=== PATIENT | female | born 1995 | race Two or more races ===

== ENCOUNTER → 2022-06-09 | Outpatient (REF) ==
[2022-06-09 13:56] LABS: RSV AMPLIFICATION NEGATIVE (NEGATIVE)
== END ==
LOC: M LABSMTC 10:45
PROVIDERS: ATTEND Family Medicine
DX: Z20.822 Contact with and (suspected) exposure to COVID-19 (principal)

== ENCOUNTER 2022-07-16 03:14 | Emergency (ER) | payer OTHER, SELFPAY ==
[~2022-07-16] VITALS: Ht 162.6 cm; Wt 69.5 kg
[2022-07-16 03:15] VITALS: BP 149/80
== END 2022-07-16 04:04 | disposition left against medical advice (07) ==
LOC: M ED 03:14
DX: Z53.21 Procedure and treatment not carried out due to patient leaving prior to being seen by health care provider (principal)

== ENCOUNTER 2022-07-22 21:28 | Emergency (ER) | payer OTHER ==
[~2022-07-22] VITALS: Ht 162.6 cm; Wt 78.1 kg
[2022-07-22 22:27] LABS: BASO # 0.1 10^3/uL (0.0-0.2); BASO % 0.6 % (0.0-1.0); EOS # 0.1 10^3/uL (0.0-0.5); HEMATOCRIT 35.7 % (36.0-47.0); HEMOGLOBIN 11.1 g/dl (12.0-15.5); LYMPH # 4.1 10^3/uL (1.5-5.0); LYMPH % 41.5 % (24.0-44.0); MEAN CORPUSCULAR HEMOGLOBIN 26.1 pg (27.0-33.0); MEAN CORPUSCULAR HGB CONC 31.1 g/dl (32.0-36.5); MONO # 0.6 10^3/uL (0.0-0.8); MONO % 6.2 % (2.0-8.0); NEUTROPHILS # 4.9 10^3/uL (1.5-8.5); NEUTROPHILS % 50.4 % (36.0-66.0); PLATELET COUNT, AUTOMATED 299 10^3/uL (150-450); RED BLOOD COUNT 4.25 10^6/uL (4.00-5.40); WHITE BLOOD COUNT 9.8 10^3/uL (4.0-10.0)
[2022-07-22 22:45] LABS: ALBUMIN 3.7 GM/DL (3.2-5.2); ALT/SGPT 16 U/L (12-78); BILIRUBIN,TOTAL 0.2 MG/DL (0.2-1.0); BLOOD UREA NITROGEN 12 MG/DL (7-18); CALCIUM LEVEL 9.3 MG/DL (8.5-10.1); CARBON DIOXIDE LEVEL 29 MEQ/L (21-32); CHLORIDE LEVEL 106 MEQ/L (98-107); CREATININE FOR GFR 0.63 MG/DL (0.55-1.30); GLOMERULAR FILTRATION RATE > 60.0 (>60); GLUCOSE, FASTING 93 MG/DL (70-100); POTASSIUM SERUM 3.9 MEQ/L (3.5-5.1); SODIUM LEVEL 139 MEQ/L (136-145); TOTAL PROTEIN 7.2 GM/DL (6.4-8.2)
[2022-07-23 02:18] VITALS: BP 118/66
[2022-07-23 06:20] LABS: GC DNA AMPLIFICATION NEGATIVE (NEGATIVE)
== END 2022-07-23 07:17 | disposition left against medical advice (07) ==
LOC: M ED 21:28
DX: Z53.21 Procedure and treatment not carried out due to patient leaving prior to being seen by health care provider (principal)

== ENCOUNTER → 2023-10-19 | Outpatient (REF) | payer OTHER ==
[2023-10-19 17:01] LABS: BASO # 0.1 10^3/uL (0.0-0.2); BASO % 0.7 % (0.0-1.0); EOS # 0.2 10^3/uL (0.0-0.5); EOS % 2.1 % (0.0-3.0); HEMATOCRIT 40.5 % (36.0-47.0); HEMOGLOBIN 12.9 g/dl (12.0-15.5); LYMPH # 3.9 10^3/uL (1.5-5.0); LYMPH % 41.5 % (24.0-44.0); MEAN CORPUSCULAR HEMOGLOBIN 27.8 pg (27.0-33.0); MEAN CORPUSCULAR HGB CONC 31.9 g/dl (32.0-36.5); MEAN CORPUSCULAR VOLUME 87.3 fl (80.0-96.0); MONO # 0.6 10^3/uL (0.0-0.8); MONO % 6.4 % (2.0-8.0); NEUTROPHILS # 4.7 10^3/uL (1.5-8.5); NEUTROPHILS % 49.1 % (36.0-66.0); PLATELET COUNT, AUTOMATED 310 10^3/uL (150-450); RED BLOOD COUNT 4.64 10^6/uL (4.00-5.40); WHITE BLOOD COUNT 9.5 10^3/uL (4.0-10.0)
[2023-10-19 17:12] LABS: ALBUMIN 3.7 G/DL (3.2-5.2); ALKALINE PHOSPHATASE 77 U/L (46-116); ALT/SGPT 23 U/L (7.0-40); AST/SGOT 15 U/L (<34); BILIRUBIN,TOTAL 0.2 MG/DL (0.3-1.2); BLOOD UREA NITROGEN 10 MG/DL (9-23); CALCIUM LEVEL 9.5 MG/DL (8.5-10.1); CARBON DIOXIDE LEVEL 31 MMOL/L (20-31); CHLORIDE LEVEL 107 MMOL/L (98-107); CHOLESTEROL LEVEL 138 MG/DL (<200); CHOLESTEROL RISK RATIO 4.11 (<5); CREATININE FOR GFR 0.59 MG/DL (0.55-1.30); GLOMERULAR FILTRATION RATE > 60.0 (>60); GLUCOSE, FASTING 81 MG/DL (60-100); HDL CHOLESTEROL 33.5 MG/DL (>40); LDL CHOLESTEROL 66.7 MG/DL (<100); MAGNESIUM LEVEL 1.8 MG/DL (1.8-2.4); NON-HDL-C 104.5 MG/DL; POTASSIUM SERUM 4.6 MMOL/L (3.5-5.1); SODIUM LEVEL 140 MMOL/L (136-145); THYROID STIMULATING HORMONE 2.003 uIU/ML (0.55-4.78); TOTAL PROTEIN 6.7 G/DL (5.7-8.2); TRIGLYCERIDES LEVEL 189 MG/DL (<150)
[2023-10-19 17:13] LABS: TOTAL 25(OH) VITAMIN D 9.1 NG/ML (20.0-100.0)
[2023-10-19 17:18] LABS: HEMOGLOBIN A1c 5.1 % (4.0-6.0)
== END ==
LOC: M LAB REF 16:06
PROVIDERS: ATTEND Nurse Practitioner Family
DX: E66.9 Obesity, unspecified (principal); E55.9 Vitamin D deficiency, unspecified

== ENCOUNTER → 2023-10-29 | Outpatient (CLI) | payer OTHER | LOC: M RAD 08:29 | PROVIDERS: ATTEND Nurse Practitioner Family | DX: H57.11 Ocular pain, right eye (principal) ==

== ENCOUNTER → 2024-01-25 | Outpatient (REF) | payer OTHER ==
[2024-01-25 17:20] LABS: HDL CHOLESTEROL 29.7 MG/DL (>40); LDL CHOLESTEROL 66.3 MG/DL (<100); NON-HDL-C 89.3 MG/DL
== END ==
LOC: M LAB REF 16:26
PROVIDERS: ATTEND Nurse Practitioner Family
DX: R79.89 Other specified abnormal findings of blood chemistry (principal)

== ENCOUNTER 2024-04-02 15:47 | Emergency (ER) | payer OTHER ==
[~2024-04-02] VITALS: Ht 162.6 cm; Wt 79.5 kg
[2024-04-02] MEDS ORDERED: BUPR1FIL3 (16:26)
[2024-04-02] MEDS ORDERED: BENA25CA4 PO (16:26)
[2024-04-02] MEDS: methylPREDNISolone 125MG 2ML VIAL IV ONE (16:53)
[2024-04-02] MEDS: NS 1,000 ML IV ONE (16:53)
[2024-04-02] MEDS: FAMOTIDINE 20MG/2ML VIAL IVP ONE (16:53)
[2024-04-02] MEDS: diphenhydrAMINE 50MG/ML VIAL IV ONE (16:53)
[2024-04-02] MEDS: ALBUTEROL SULFATE 2.5MG/0.5ML INH NEB SOLN NEB ONE (17:00)
[2024-04-02] MEDS ORDERED: HYDR-3363 PO (20:17)
[2024-04-02] MEDS ORDERED: PEPC1TAB5 PO (20:17)
[2024-04-02] MEDS ORDERED: PRED20TA PO (20:17)
[2024-04-02 20:28] VITALS: BP 128/69; TEMP 98.1; O2SAT 95
== END 2024-04-02 20:43 | disposition home or self-care (01) ==
LOC: M ED 15:47
DX: T78.40XA Allergy, unspecified, initial encounter (principal); X58.XXXA Exposure to other specified factors, initial encounter; Y92.89 Other specified places as the place of occurrence of the external cause; Y93.89 Activity, other specified; Y99.8 Other external cause status; Z79.899 Other long term (current) drug therapy
CPT/HCPCS: 93041; 94640; 94760; 96374; 96375; 99285; J1200; J2919; S0028

== ENCOUNTER → 2024-10-11 | Outpatient (CLI) | payer OTHER ==
[~2024-10-11] MED LIST: BENA25CA4 PO; BUPR1FIL3; HYDR-3363 PO; PEPC1TAB5 PO; PRED20TA PO
== END ==
LOC: M LAB 14:59
PROVIDERS: ATTEND Family Medicine Addiction Medicine
DX: Z77.128 Contact with and (suspected) exposure to other hazards in the physical environment (principal)

== ENCOUNTER 2025-04-23 22:16 | Emergency (ER) | payer OTHER ==
[~2025-04-23] VITALS: Ht 162.6 cm; Wt 86.4 kg
[2025-04-23 23:51] LABS: BASO # 0.0 10^3/uL (0.0-0.2); BASO % 0.4 % (0.0-1.0); EOS # 0.1 10^3/uL (0.0-0.5); EOS % 0.6 % (0.0-3.0); LYMPH # 1.7 10^3/uL (1.5-5.0); LYMPH % 18.5 % (24.0-44.0); MONO # 0.6 10^3/uL (0.0-0.8); MONO % 7.1 % (2.0-8.0); NEUTROPHILS # 6.6 10^3/uL (1.5-8.5); NEUTROPHILS % 73.0 % (36.0-66.0); PLATELET COUNT, AUTOMATED 226 10^3/uL (150-450)
[2025-04-24 00:11] LABS: CALCIUM LEVEL 8.4 MG/DL (8.5-10.1); CARBON DIOXIDE LEVEL 29 MMOL/L (20-31); CHLORIDE LEVEL 103 MMOL/L (98-107); CREATININE FOR GFR 0.64 MG/DL (0.55-1.30); GLOMERULAR FILTRATION RATE > 90.0 (>60); POTASSIUM SERUM 4.0 MMOL/L (3.5-5.1); SODIUM LEVEL 139 MMOL/L (136-145)
[2025-04-24 00:12] LABS: CK-MB VALUE MASS < 1.0 NG/ML (<3.6)
[2025-04-24 00:34] LABS: CPK CREATINE PHOSPHOKINASE 70 U/L (34-145)
[2025-04-24 01:09] LABS: HCG, SERUM QUANTITATIVE < 2.6 MIU/ML (<4.2)
[2025-04-24 01:13] LABS: Trichomonas vaginalis (AMP) NOT DETECTED (NEGATIVE)
[2025-04-24 01:14] LABS: CK-MB VALUE MASS < 1.0 NG/ML (<3.6); CPK CREATINE PHOSPHOKINASE 66 U/L (34-145)
[2025-04-24] MEDS ORDERED: ISOVUE-370 76% 100 ML VIAL As Ordered ONE (01:24)
[2025-04-24 01:37] LABS: GC DNA AMPLIFICATION NEGATIVE (NEGATIVE)
[2025-04-24] MEDS: NS (Normal Saline) 0.9% 1,000 ML IV ONE (03:01)
[2025-04-24] MEDS: KETOROLAC 30 MG/ML 1 ML VIAL IV ONE (03:02)
[2025-04-24] MEDS: ACETAMINOPHEN *IV* 1,000 MG in IV 1 EA IV ONE (03:02)
[2025-04-24] MEDS ORDERED: NS (Normal Saline) 0.9% 1,000 ML IV ONE (04:45)
[2025-04-24] MEDS: LEVALBUTEROL 1.25 MG 0.5ML CONCENTRATE NEB NEB ONE (05:06)
[2025-04-24 05:19] VITALS: BP 95/54; TEMP 98; O2SAT 96
== END 2025-04-24 05:30 | disposition home or self-care (01) ==
LOC: M ED 22:16
DX: J06.9 Acute upper respiratory infection, unspecified (principal); B34.8 Other viral infections of unspecified site; K21.9 Gastro-esophageal reflux disease without esophagitis; F41.9 Anxiety disorder, unspecified; F11.10 Opioid abuse, uncomplicated; Z79.899 Other long term (current) drug therapy
CPT/HCPCS: 71045; 71275; 76856; 80048; 82550; 82553; 84484; 84702; 85025; 86850; 86900; 86901; 87210; 87486; 87581; 87633; 87661; 87798; 87810; 87850; 93005; 94640; 96365; 96366; 96375; 99284; J0131; J1885; Q9967